=== PATIENT | female | born 1945 | race Caucasian/White ===

== ENCOUNTER 2023-01-09 16:23 | Outpatient (CLI) | payer BC, MEDICARE | END 2023-01-09 16:24 | disposition home or self-care (01) | LOC: BICRAD 16:23 | PROVIDERS: ATTEND Family Medicine | DX: R05.9 Cough, unspecified (principal); J98.4 Other disorders of lung | CPT/HCPCS: 71046 ==

== ENCOUNTER 2023-02-03 09:39 | Outpatient (CLI) | payer BC ==
[~2023-02-03 09:39] MED LIST: Iopamidol 370 76% 100 ML VIAL ONE
== END 2023-02-03 09:40 | disposition home or self-care (01) ==
LOC: BICCT 09:39
PROVIDERS: ATTEND Family Medicine
DX: R91.1 Solitary pulmonary nodule (principal); J98.4 Other disorders of lung
CPT/HCPCS: 71260; Q9967